=== PATIENT | male | born 1990 | race Caucasian/White ===

== ENCOUNTER 2017-04-08 14:40 | Emergency (ER) | payer MEDICAID ==
[2009-07-24 13:34] VITALS: BMI 28.5
[2017-04-17 11:37] VITALS: BMI 28.5
== END 2017-04-08 17:25 | disposition home or self-care (01) ==
LOC: D.ER 14:40
DX: S89.91XA Unspecified injury of right lower leg, initial encounter (principal); X50.1XXA Overexertion from prolonged static or awkward postures, initial encounter; Y93.89 Activity, other specified; Y92.019 Unspecified place in single-family (private) house as the place of occurrence of the external cause; F17.200 Nicotine dependence, unspecified, uncomplicated

== ENCOUNTER → 2017-04-10 15:09 | Outpatient (CLI) | payer MEDICAID ==
[2009-07-24 13:34] VITALS: BMI 28.5
[2017-04-17 11:37] VITALS: BMI 28.5
== END | disposition home or self-care (01) ==
LOC: D.MRI 04-05 16:00
DX: S83.241A Other tear of medial meniscus, current injury, right knee, initial encounter (principal)

== ENCOUNTER 2017-04-17 11:05 | Outpatient (CLI) | payer MEDICAID ==
[~2017-04-17] VITALS: Ht 182.9 cm; Wt 95.3 kg
[2017-04-17 11:37] VITALS: Ht 182.9 cm; Wt 95.3 kg
== END 2017-04-17 17:05 | disposition home or self-care (01) ==
LOC: D.OPS 11:05 → EDSTATUS 12:50 → D.PAN 12:50 → D.OPS 13:00 → D.PAN 13:00 → D.OPS 14:00 → D.PAN 14:00 → D.OPS 17:05
DX: S83.249A Other tear of medial meniscus, current injury, unspecified knee, initial encounter (principal); Z01.810 Encounter for preprocedural cardiovascular examination; Z01.811 Encounter for preprocedural respiratory examination; Z01.812 Encounter for preprocedural laboratory examination; Z53.9 Procedure and treatment not carried out, unspecified reason

== ENCOUNTER 2017-04-27 06:54 | Day surgery (SDC) | payer MEDICAID ==
--- NOTE | ~2017-04-27 | OP ---
PATIENT NAME: FATIMAH RIGGS MEDICAL RECORD: [id number] :88 LOCATION:[facility] ADMISSION DATE: SURGEON: NAYA UNDERWOOD MD DATE OF OPERATION: 04/27/2017 PREOPERATIVE DIAGNOSIS: Bucket-handle tear of the right medial meniscus. POSTOPERATIVE DIAGNOSIS: Bucket-handle tear of the right medial meniscus. PROCEDURE: Arthroscopic partial medial meniscectomy. SURGEON: Naya Underwood MD ANESTHESIA: General. INTRAOPERATIVE COMPLICATIONS: None. SUMMARY OF PATHOLOGIC FINDINGS: The patient's pathology was clearly visible upon immediately entering the knee, it was in front of the anterior medial condyle. OPERATIVE SUMMARY IN DETAIL: After obtaining the appropriate preoperative orthopedic surgery consent as well as anesthetic consultation, evaluation, and clearance, the patient was brought to the operating room and placed on the operating table in supine position. After adequate general laryngeal mask was administered, tourniquet was placed about the proximal aspect of the right lower extremity. Right lower extremity was then prepped and draped in a routine sterile fashion. It was elevated and exsanguinated, tourniquet inflated to 350 mmHg. Routine inferolateral portal was established followed by superomedial portal and inferomedial portal. Diagnostic arthroscopy did immediately show the patient's pathology. The lateral compartment was pristine. The bucketed portion was less than half of the entire meniscus. It was then excised using arthroscopic scissors as well as a large arthroscopic resector. This was taken down to smooth stable meniscal tear junctions. The remainder of the knee was without pathology. Having completed this, the knee was insufflated with 30 cc of 0.25% Marcaine with epinephrine and 40 mg of Depo-Medrol. Arthroscopy portals were closed in routine interrupted fashion using 4-0 Prolene. Sterile dressings were applied. The patient was awakened, taken to the recovery in stable condition. All final needle and sponge counts were correct. TRANSINT:[id number] Voice Confirmation ID: [id number] DOCUMENT ID: [id number] NAYA UNDERWOOD MD at 0941 CC: [id number] DICTATION DATE: 05/07/17 1534 ASSISTANT MANAGER BILINGUAL: 05/07/17 1823 [facility] 04/27/17 [place] [id number]
[2017-04-27 07:48] VITALS: BP 117/74; BMI 28.5
[2017-04-27] MEDS ORDERED: MEPERIDINE HCL50 MG PO (10:59)
== END 2017-04-27 12:45 | disposition home or self-care (01) ==
LOC: D.OPS 06:54 → D.PAN 10:15 → D.OPS 12:45
DX: S83.211A Bucket-handle tear of medial meniscus, current injury, right knee, initial encounter (principal); F17.200 Nicotine dependence, unspecified, uncomplicated; Z01.812 Encounter for preprocedural laboratory examination